=== PATIENT | male | born 1970 | race Caucasian/White ===

== ENCOUNTER 2020-11-23 05:56 | Emergency (ER) | payer OTHER ==
[2020-11-23 06:25] LABS: BASOPHIL 0.3 % (0-2); EOSINOPHIL 1.4 % (0-5); HGB 8.4 g/dl (13.2-18.0); MCH 24.8 pg (25.0-31.0); MCV 82.6 fL (78.0-100.0); MONOCYTE 5.8 % (0-12); MPV 10.3 fL (6.0-9.5); NEUTROPHIL 70.5 % (41-80); NRBC 0; PLT 379 K/uL (150-400); RBC 3.39 M/uL (4.70-6.00); RDW 17.6 % (11.5-14.0); WBC 12.5 K/uL (4.0-10.5)
[2020-11-23 06:48] LABS: INR 1.88 (0.9-1.2); PROTHROMBIN TIME 20.8 SECONDS (11.8-13.4)
[2020-11-23 06:49] LABS: PTT 47.8 SECONDS (24.4-34.7)
[2020-11-23 06:59] LABS: ALBUMIN 1.5 g/dL (3.4-5.0); BILIRUBIN - TOTAL 0.6 mg/dL (0.2-1.0); BUN/CREAT RATIO (CALC) 24.2 RATIO; CREATININE 1.24 mg/dL (0.67-1.17); GLOBULIN (CALCULATION) 4.6 g/dL; POTASSIUM 5.2 mmol/L (3.5-5.1); TOTAL PROTEIN 6.1 g/dL (6.4-8.2)
[2020-11-23 07:06] LABS: LACTIC ACID 11.8 mmol/L (0.4-1.9)
[2020-11-23 07:24] LABS: CORONAVIRUS 2019 SARS-COV-2 NEGATIVE (NEGATIVE); INFLUENZA A NAA NEGATIVE (NEGATIVE)
== END 2020-11-23 11:15 | disposition other institution (70) ==
LOC: FER 05:56
PROVIDERS: Emergency Medicine Emergency Medical Services
DX: J90 Pleural effusion, not elsewhere classified (principal); K74.60 Unspecified cirrhosis of liver; Z79.01 Long term (current) use of anticoagulants; Z87.09 Personal history of other diseases of the respiratory system; Z20.822 Contact with and (suspected) exposure to COVID-19
CPT/HCPCS: 36415; 71045; 71275; 80053; 83605; 83880; 84145; 84484; 85025; 85610; 85730; 87040; 93005; J0780; J1170; J2405; J2543; Q9967; U0002

== ENCOUNTER 2020-12-14 18:07 | Emergency (ER) | payer OTHER ==
[2020-12-14 20:12] LABS: BASOPHIL 0.1 % (0-2); EOSINOPHIL 0 % (0-5); HCT 29.8 % (42.0-52.0); HGB 9.4 g/dl (13.2-18.0); LYMPHOCYTE 4.6 % (15-48); MCH 26.5 pg (25.0-31.0); MCHC 31.5 g/dL (32.0-36.0); MCV 83.9 fL (78.0-100.0); MONOCYTE 4.3 % (0-12); MPV 9.5 fL (6.0-9.5); NEUTROPHIL 90.2 % (41-80); NRBC 0; PLT 173 K/uL (150-400); RBC 3.55 M/uL (4.70-6.00); RDW 18.9 % (11.5-14.0); WBC 8.8 K/uL (4.0-10.5)
[2020-12-14 20:29] LABS: ALBUMIN 2.1 g/dL (3.4-5.0); BILIRUBIN - TOTAL 0.6 mg/dL (0.2-1.0); BUN/CREAT RATIO (CALC) 26.9 RATIO; CREATININE 1.08 mg/dL (0.67-1.17); GLOBULIN (CALCULATION) 3.4 g/dL; TOTAL PROTEIN 5.5 g/dL (6.4-8.2)
[2020-12-14 20:37] LABS: INR 1.39 (0.9-1.2); PROTHROMBIN TIME 16.4 SECONDS (11.8-13.4)
[2020-12-14 20:38] LABS: PTT 42.2 SECONDS (24.4-34.7)
[2020-12-14] MEDS ORDERED: AFRIN15 M1 (22:20)
== END 2020-12-14 22:35 | disposition home or self-care (01) ==
LOC: FER 18:07
PROVIDERS: Emergency Medicine
DX: R04.0 Epistaxis (principal); I82.409 Acute embolism and thrombosis of unspecified deep veins of unspecified lower extremity; I26.99 Other pulmonary embolism without acute cor pulmonale; Z79.01 Long term (current) use of anticoagulants; Z88.6 Allergy status to analgesic agent; Z86.2 Personal history of diseases of the blood and blood-forming organs and certain disorders involving the immune mechanism
CPT/HCPCS: 36415; 80053; 85025; 85610; 85730; 99283; C9046; Q0169